=== PATIENT | female | born 1960 | race Two or more races ===

== ENCOUNTER 2024-01-05 19:47 | Day surgery (SDC) | payer OTHER ==
[2024-01-05 22:12] LABS: BASO % 0.8 % (0-2.0); EOS % 1.3 % (0-4.5); HEMATOCRIT 42.7 % (32.4-45.2); HEMOGLOBIN 14.3 GM/dL (10.7-15.3); LYMPH % 30.1 % (8-40); MCH 27.7 pg (25.7-33.7); MCHC 33.4 g/dl (32.0-36.0); MONO % 8.8 % (3.8-10.2); PLATELET COUNT 208 10^3/uL (134-434); RBC 5.15 M/mm3 (3.60-5.2); RDW 14.9 % (11.6-15.6); WHITE BLOOD COUNT 8.4 K/mm3 (4.0-10.0)
[2024-01-05 22:42] LABS: ACTIVATED PTT 38.6 SECONDS (25.2-36.5); INR 1.03 (0.83-1.09); PROTHROMBIN TIME (PATIENT) 11.8 SEC (9.7-13.0)
[2024-01-05 22:49] LABS: POTASSIUM 3.9 mmol/L (3.5-5.1)
[2024-01-05 22:51] LABS: CALCIUM 9.9 mg/dL (8.5-10.1)
[2024-01-05 22:52] LABS: BLOOD UREA NITROGEN 37.8 mg/dL (7-18)
[2024-01-05 22:53] LABS: ALBUMIN 3.7 g/dl (3.4-5.0)
[2024-01-05 22:55] LABS: CREATININE 0.9 mg/dL (0.55-1.3)
[2024-01-05 22:56] LABS: BILIRUBIN,TOTAL 0.7 mg/dL (0.2-1); TOT PROT 9.6 g/dl (6.4-8.2)
[2024-01-06] MEDS ORDERED: ACETAMINOPHEN INJECTION 100 ML ONE (02:00)
[2024-01-06] MEDS ORDERED: PIPERACILLIN/TAZOB 3.375 GM 3.375 GM/50 ML BAG IVPB ONE (02:01)
[2024-01-06 02:10] LABS: PH,URINE 5.5 (5.0-8.0); URINE APPEARANCE CLEAR; URINE BILIRUBIN NEGATIVE (NEGATIVE); URINE COLOR YELLOW; URINE GLUCOSE (UA) 3+ (NEGATIVE); URINE KETONE NEGATIVE (NEGATIVE); URINE LEUK ESTERASE NEGATIVE (NEGATIVE); URINE NITRITE NEGATIVE (NEGATIVE); URINE PROTEIN NEGATIVE (NEGATIVE)
[2024-01-06] MEDS: PIPERACILLIN/TAZOB 3.375 GM 3.375 GM in DEXTROSE 5%-WATER - 50 ML IVPB ONE (02:16)
[2024-01-06] MEDS: ACETAMINOPHEN 1000 MG/100 ML BAG IVPB ONE (02:17)
[2024-01-06] MEDS ORDERED: ONDANSETRON 4 MG/2 ML VIAL IVPUSH PRN ×3 (03:53→10:33)
[2024-01-06 04:18] VITALS: BMI 24.3
[2024-01-06] MEDS: SODIUM CHLORIDE 1,000 ML IV SCH (05:59)
[2024-01-06] MEDS ORDERED: ACETAMINOPHEN 1000 MG/100 ML BAG IVPB PRN (08:00)
[2024-01-06] MEDS ORDERED: BUPIVACAINE HCL/PF 0.25% (2.5MG/ML) 10 ML VIAL ONE (08:24)
[2024-01-06] MEDS ORDERED: PROMETHAZINE HCL 25 MG/1 ML VIAL IVPB PRN ×2 (08:55→10:33)
[2024-01-06] MEDS ORDERED: PROPOFOL 20 ML ONE ×2 (09:05→09:17)
[2024-01-06] MEDS ORDERED: MIDAZOLAM HCL 2 MG/2 ML SINGLE DOSE VIAL ONE (09:06)
[2024-01-06] MEDS ORDERED: ROCURONIUM BROMIDE 50 MG/5 ML SYRINGE ONE (09:06)
[2024-01-06] MEDS ORDERED: PIPERACILLIN/TAZOBACTAM 3.375 GM VIAL IVPB ONE (09:17)
[2024-01-06] MEDS ORDERED: BUPIVACAINE HCL/PF 0.5% (5MG/ML) 10 ML VIAL ONE (09:17)
[2024-01-06] MEDS: PIPERACILLIN/TAZOBACTAM 3.375 GM VIAL IVPB ONE (09:25)
[2024-01-06] MEDS ORDERED: ONDANSETRON 4 MG/2 ML VIAL ONE (09:27)
[2024-01-06] MEDS ORDERED: DEXAMETHASONE SOD PHOSPHATE 4 MG/1 ML VIAL ONE (09:27)
[2024-01-06] MEDS: BUPIVACAINE HCL/PF 0.5% (5 MG/ML) 30 ML VIAL IJ ONE ×2 (09:36)
[2024-01-06] MEDS ORDERED: SUGAMMADEX SODIUM 200 MG/2 ML VIAL ONE (10:04)
[2024-01-06] MEDS ORDERED: KETOROLAC TROMETHAMINE 30 MG/1 ML VIAL ONE (10:06)
[2024-01-06] MEDS: ENOXAPARIN NA (PORCINE) 40 MG/0.4 ML DISP.SYRIN SQ SCH (10:08)
[2024-01-06] MEDS ORDERED: oxyCODONE HCL 5 MG TABLET PO PRN (10:22)
[2024-01-06] MEDS: LACTATED RINGERS SOLUTION 1,000 ML IV SCH ×2 (10:35→11:55)
[2024-01-06 11:51] VITALS: RESP 18
[2024-01-06] MEDS: PIPERACILLIN/TAZOB 3.375 GM 3.375 GM in DEXTROSE 5%-WATER - 50 ML IVPB SCH (11:54)
[2024-01-06 13:07] LABS: BASO % 0.3 % (0-2.0); EOS % 0.2 % (0-4.5); HEMATOCRIT 38.8 % (32.4-45.2); HEMOGLOBIN 13.1 GM/dL (10.7-15.3); LYMPH % 15.3 % (8-40); MCH 27.8 pg (25.7-33.7); MCHC 33.8 g/dl (32.0-36.0); MEAN CELL VOLUME 82.3 fl (80-96); MEAN PLT VOLUME 8.2 fl (7.5-11.1); MONO % 2.5 % (3.8-10.2); NEUT % 81.7 % (42.8-82.8); PLATELET COUNT 174 10^3/uL (134-434); RBC 4.72 M/mm3 (3.60-5.2); RDW 14.9 % (11.6-15.6); WHITE BLOOD COUNT 6.3 K/mm3 (4.0-10.0)
[2024-01-06 14:10] LABS: POTASSIUM 4.2 mmol/L (3.5-5.1)
[2024-01-06 14:14] LABS: BLOOD UREA NITROGEN 28.8 mg/dL (7-18)
[2024-01-06 14:19] LABS: CALCIUM 9.3 mg/dL (8.5-10.1)
[2024-01-06 14:23] LABS: CREATININE 0.9 mg/dL (0.55-1.3)
[2024-01-06] MEDS: INSULIN ASPART SLIDING SCALE (NOVOLOG) 1 VIAL SQ SCH (16:35)
[2024-01-07] MEDS: ACETAMINOPHEN 1000 MG/100 ML BAG IVPB PRN (03:17)
[2024-01-07 08:44] VITALS: BP 145/69; PULSE 59; TEMP 98.6
[2024-01-07 10:58] LABS: BASO % 0.5 % (0-2.0); EOS % 0.9 % (0-4.5); HEMATOCRIT 37.3 % (32.4-45.2); HEMOGLOBIN 12.6 GM/dL (10.7-15.3); LYMPH % 35.1 % (8-40); MCH 27.8 pg (25.7-33.7); MCHC 33.9 g/dl (32.0-36.0); MEAN CELL VOLUME 82.1 fl (80-96); MEAN PLT VOLUME 8.1 fl (7.5-11.1); MONO % 8.1 % (3.8-10.2); NEUT % 55.4 % (42.8-82.8); PLATELET COUNT 177 10^3/uL (134-434); RBC 4.55 M/mm3 (3.60-5.2); RDW 14.6 % (11.6-15.6); WHITE BLOOD COUNT 6.1 K/mm3 (4.0-10.0)
[2024-01-07 11:19] LABS: POTASSIUM 3.8 mmol/L (3.5-5.1)
[2024-01-07 11:24] LABS: BLOOD UREA NITROGEN 23.6 mg/dL (7-18); CALCIUM 8.9 mg/dL (8.5-10.1)
[2024-01-07 11:28] LABS: BILIRUBIN,TOTAL 0.6 mg/dL (0.2-1); CREATININE 0.8 mg/dL (0.55-1.3); TOT PROT 8.1 g/dl (6.4-8.2)
== END 2024-01-07 13:51 | disposition home or self-care (01) ==
LOC: JER 19:47 → JERBED 01-06 02:14 → UNDOADMIN 01-06 02:14 → J6W 01-06 04:07 → JERBED 01-06 04:07 → JASUSAT 01-07 12:27 → UNDODISIN 01-07 13:51
PROVIDERS: ATTEND Internal Medicine
PROC: 0DTJ4ZZ Resection of Appendix, Percutaneous Endoscopic Approach (ICD-10-PCS; principal; 2024-01-07)
DX: K35.80 Unspecified acute appendicitis (principal); N85.2 Hypertrophy of uterus
CPT/HCPCS: 36415; 74177-TC; 76856-TC; 80048; 80053; 81003; 82962; 83690; 84703; 85025; 85610; 85730; 86850; 86900; 86901; 87086; 94760; 99285-25; J0131; Q9967